=== PATIENT | male | born 1960 | race Two or more races ===

== ENCOUNTER 2017-06-14 06:07 | Emergency (ER) | payer OTHER ==
[~2017-06-14] VITALS: Ht 172.7 cm; Wt 79.4 kg
[~2017-06-14 06:07] MED LIST: 70/30 INSULIN SQ
--- NOTE | 2017-06-14 06:30 | NUR ---
Patient ambulated to ER with unsteady gait, reports to have fallen and has hurt his testicles. Patient has an abrasion under the chin, and reports to have history of diabetes and liver cirrhosis. Patient speaks Farsi.
--- NOTE | 2017-06-14 06:39 | NUR ---
Dr. Dickinson at bedside for MSE.
[2017-06-14 07:20] LABS: BASOPHILS % (AUTO) 1.2 % (0.0-2.0); EOSINOPHILS # (AUTO) 0.1 K/uL (0.0-0.7); EOSINOPHILS % (AUTO) 2.4 % (0.0-7.0); HEMATOCRIT 40.8 % (36.7-47.1); HEMOGLOBIN 13.8 g/dL (12.5-16.3); LYMPHOCYTES # (AUTO) 0.4 K/uL (20.0-40.0); LYMPHOCYTES % (AUTO) 15.6 % (20.5-51.5); MEAN CORPUSCULAR HEMOGLOBIN 29.4 uug (23.8-33.4); MEAN CORPUSCULAR HGB CONC 34 g/dL (32.5-36.3); MEAN CORPUSCULAR VOLUME 86.9 fL (73.0-96.2); MONOCYTES # (AUTO) 0.3 K/uL (2.0-10.0); MONOCYTES % (AUTO) 12.3 % (0.0-11.0); NEUTROPHILS # (AUTO) 1.8 K/uL (1.8-8.9); NEUTROPHILS % (AUTO) 68.5 % (38.5-71.5); PLATELET COUNT (AUTO) 78 K/uL (152-348); RED BLOOD CELL COUNT(AUTO) 4.69 MIL/uL (4.06-5.63); WHITE BLOOD COUNT (AUTO) 2.6 K/uL (3.6-10.2)
--- NOTE | 2017-06-14 07:23 | NUR ---
SBAR report passed to Amber DE PAZ.
[2017-06-14 07:32] LABS: POTASSIUM 4.2 mmol/L (3.5-5.1)
[2017-06-14 07:40] LABS: BILIRUBIN,DIRECT 0.2 mg/dL (0.0-0.2); BILIRUBIN,TOTAL 0.6 mg/dL (0.1-1.0)
--- NOTE | 2017-06-14 07:40 | NUR ---
the abrasion on the chin cleansed.
[2017-06-14 07:41] LABS: TOTAL PROTEIN, SERUM 6.4 g/dL (6.4-8.2)
[2017-06-14 07:57] VITALS: BP 141/89
--- NOTE | 2017-06-14 08:00 | NUR ---
[facility] nahid provided for pt.
--- NOTE | 2017-06-14 08:08 | NUR ---
pt with a drainage device on the right flank which is completely dressed. per pt this device was placed at [facility] to ashwin the "abdomnal fluid" per pt. Addendum: 06/14/17 at 0813 by SHEMAR the drainage device was placed 2 weeks ago.
--- NOTE | 2017-06-14 08:10 | NUR ---
both thighs mottled and blisters on both ble, edema on both feet,
--- NOTE | 2017-06-14 08:30 | NUR ---
pt requesting to be d/amarilys home with a px of the medications that he was on them for a long time and was able to control his diabetes and liver cirhosis. er at bedside discussing the issue with the pt. translation from farsi provided by me.
[2017-06-14 08:51] LABS: BAND % (MANUAL) 3 % (0-10); EOSINOPHILS % (MANUAL) 1 % (0-8); LYMPHOCYTES % (MANUAL) 12 % (20-40); MONOCYTES % (MANUAL) 19 % (2-10); NEUTROPHILS % (MANUAL) 62 % (42-75)
--- NOTE | 2017-06-14 09:08 | NUR ---
Patient discharged to home in stable conditon. Written and verbal after care instructions given. Patient verbalizes understanding of instructions.all the copy of er work ups provided for pt to follow up. pt walks in steady gait, deneis any pain, nausea or any other distreaa at this time.
== END 2017-06-14 09:12 | disposition other institution (70) ==
LOC: ER 06:21
DX: K74.60 Unspecified cirrhosis of liver (principal); E11.9 Type 2 diabetes mellitus without complications; F17.210 Nicotine dependence, cigarettes, uncomplicated; Z79.4 Long term (current) use of insulin
CPT/HCPCS: 36415; 70030-TC; 70450; 71045; 83605; 83690; 85025; 85730; 87040; 93005; A4663

== ENCOUNTER 2017-10-29 01:20 | Inpatient (IN) | payer OTHER ==
[~2017-10-29] VITALS: Ht 172.7 cm; Wt 80.7 kg
--- NOTE | 2017-10-29 01:25 | NUR ---
DR AINSLEY GUERRA MD AT BEDSIDE FOR MSE.
[2017-10-29] MEDS ORDERED: VANCOMYCIN IV 1,000 MG in IV DEXTROSE 5% 250 ML IV ONE (01:30)
[2017-10-29] MEDS ORDERED: CEFTRIAXONE 1 G in IV DEXTROSE 5% 50 ML IV ONE (01:30)
[2017-10-29] MEDS ORDERED: LIDOCAINE 1%-EPI 1:100,000 20 ML VIAL ONE (01:39)
[2017-10-29] MEDS ORDERED: ONDANSETRON IV *ER 4 MG/2 ML VIAL IV ONE (01:45)
[2017-10-29] MEDS ORDERED: HYDROMORPHONE 1 MG/1 ML DISP.SYRIN IV ONE (01:45)
[2017-10-29] MEDS ORDERED: HYDROMORPHONE 2 MG/1 ML DISP.SYRIN ONE (01:48)
[2017-10-29] MEDS ORDERED: CEFTRIAXONE 1 G VIAL ONE (01:48)
[2017-10-29] MEDS ORDERED: ONDANSETRON 4 MG/2 ML VIAL ONE (01:48)
[2017-10-29] MEDS ORDERED: VANCOMYCIN IV 200 ML ONE (01:49)
--- NOTE | 2017-10-29 01:57 | NUR ---
LAB AT BEDSIDE FOR BLOOD DRAW.
[2017-10-29 02:23] LABS: BASOPHILS % (AUTO) 0.7 % (0.0-2.0); EOSINOPHILS # (AUTO) 0.1 K/uL (0.0-0.7); EOSINOPHILS % (AUTO) 3.4 % (0.0-7.0); HEMATOCRIT 37.5 % (36.7-47.1); HEMOGLOBIN 12.6 g/dL (12.5-16.3); LYMPHOCYTES # (AUTO) 0.5 K/uL (20.0-40.0); MEAN CORPUSCULAR HEMOGLOBIN 29.5 uug (23.8-33.4); MEAN CORPUSCULAR HGB CONC 34 g/dL (32.5-36.3); MEAN CORPUSCULAR VOLUME 87.7 fL (73.0-96.2); MONOCYTES # (AUTO) 0.3 K/uL (2.0-10.0); MONOCYTES % (AUTO) 10.9 % (0.0-11.0); PLATELET COUNT (AUTO) 75 K/uL (152-348); RED BLOOD CELL COUNT(AUTO) 4.27 MIL/uL (4.06-5.63); WHITE BLOOD COUNT (AUTO) 2.9 K/uL (3.6-10.2)
[2017-10-29 02:29] LABS: BILIRUBIN,DIRECT 0.2 mg/dL (0.0-0.2); BILIRUBIN,TOTAL 0.7 mg/dL (0.2-1.0); CREATININE 0.9 mg/dL (0.6-1.3); TOTAL PROTEIN, SERUM 7.2 g/dL (6.4-8.2)
--- NOTE | 2017-10-29 02:46 | NUR ---
EPIC PAGED FOR PANEL. WAS TOLD ANDUBALDON WILL CALL BACK
[2017-10-29] MEDS ORDERED: MAGNESIUM HYDROXIDE 30 ML LIQUID UDC PO PRN (03:15)
[2017-10-29] MEDS ORDERED: HYDROCODONE/APAP 5-325MG TABLET PO PRN (03:15)
[2017-10-29] MEDS ORDERED: Z GUARD REMEDY PASTE 57 GM TUBE TOP PRN (03:15)
[2017-10-29] MEDS ORDERED: DEXTROSE 50% 50 ML DISP.SYRIN IV PRN (03:15)
[2017-10-29] MEDS ORDERED: ONDANSETRON 4 MG/2 ML VIAL IV PRN (03:15)
[2017-10-29] MEDS ORDERED: ACETAMINOPHEN 325 MG TABLET PO PRN (03:15)
[2017-10-29] MEDS ORDERED: INSULIN REGULAR, HUMAN 300 UNITS/3 ML VIAL SQ PRN (03:15)
[2017-10-29 03:27] LABS: ETHANOL < 3 MG/DL (0-0)
--- NOTE | 2017-10-29 03:40 | NUR ---
Pt. admitted to [facility], under care of Dr. LONG Belongs List completed
[2017-10-29 04:15] VITALS: BP 110/84
--- NOTE | 2017-10-29 04:15 | NUR ---
received pt from ER w/Dx of abdominal wall cellulitis,upon admission,Pt's A/A/O x4,able to understand some Hungarian.unit irientation's given to pt;he verbalized understanding and cooperative.at this time,already had admission orders from :carried it out.pt's on vancomycin 1gm IVPB from Er,still kept it noted. Per pt stated that"I'm very hungry,I didn't eat anything so long time";Sintia/limnologist's notified and she stated that she'll call (due to the order for paracentesis in AM today),and she left the message with exchange service by Sintia noted. at 04:45,pt called again and stated that"I'm very hungry.I don't need to remove any water from my tummy because ER doctor checked it but it's nothing inside";Sintia went to explained to pt at this time.
[2017-10-29 04:39] VITALS: BP 110/84
[2017-10-29] MEDS ORDERED: LIDOCAINE 1%-EPI 1:100,000 20 ML VIAL TP ONE (05:30)
--- NOTE | 2017-10-29 05:30 | NUR ---
CALLED BACK AND HE'S AWARE THAT PT REFUSED TO BE NPO FOR PARACENTESIS.PT'S SLEEPING AT THIS TIME NOTED.
--- NOTE | 2017-10-29 06:00 | NUR ---
PT WOKE UP AND STATED THAT' I DON'T WANT GET ANY TEST,I HAVE NO WATER IN MY TUMMY,GIVE ME SANDWICH,I WANT TO EAT";SANDWICH'S GIVEN TO PT AT THIS TIME,PT TOLERATED WELL NOTED.EDUCATED TO GET U/A ORDER AT THIS TIME,PT STATED THAT "I WILL GIVE IT TO YOU".NO DISTRESS NOTED IN THE SHIFT.
[2017-10-29] MEDS: BLOOD SUGAR DIAGNOSTIC 1 EACH STRIP VI SCH ×4 (06:47→20:26)
[2017-10-29 07:10] LABS: *BILIRUBIN,URIN NEGATIVE (NEGATIVE); *BLOOD, URINE Trace-intact (NEGATIVE); *CLARITY,URINE CLEAR (CLEAR); *COLOR,URINE YELLOW (YELLOW); *KETONES,URINE NEGATIVE (NEGATIVE); *PROTEIN,URINE 1+ (NEGATIVE); LEUKOCYTE ESTERASE ,URINE NEGATIVE (NEGATIVE); NITRITE, URINE NEGATIVE (NEGATIVE); UGLUCOSE NEGATIVE (NEGATIVE)
[2017-10-29 07:15] LABS: BACTERIA,URINE FEW /HPF (NONE SEEN); RBC,URINE 0-3 /HPF (0-3); SQUAMOUS EPITHELIAL CELL,UR FEW /HPF (NONE SEEN)
[2017-10-29] MEDS: INSULIN REGULAR, HUMAN 300 UNIT/3 ML VIAL SQ PRN ×2 (08:32→13:11)
[2017-10-29] MEDS: LACTULOSE 20 G/30 ML LIQUID UDC PO SCH ×2 (09:14→20:11)
[2017-10-29] MEDS: FUROSEMIDE 40 MG TABLET PO SCH (09:14)
[2017-10-29] MEDS: SPIRONOLACTONE 50 MG TABLET PO SCH (09:14)
[2017-10-29] MEDS: NICOTINE 21 MG/24HR PATCH TD SCH (09:14)
[2017-10-29 11:35] VITALS: BP 123/71
[2017-10-29] MEDS: VANCOMYCIN IV 1 G in PREMIXED 0 EACH IV SCH ×2 (11:39→21:19)
--- NOTE | 2017-10-29 14:42 | NUR ---
Clinical pharmacy note-Vancomycin dosing per pharmacy Subjective: To start Vancomycin dosing on this 57 year old patient for abdominal wall cellulitis . Objective: BUN 17 Scr 0.9 WBC 2.9 Temp 98.3 Ht 172.72cm Wt 80.739 kg Assessment/plan: Patient had Vancomycin 1 gram in ER today at 0130. Will continue Vancomycin 1 gram IV every 10 hrs(second dose today at 1130) and draw trough by 4th dose(ordered for tomorrow at 0700) for expected trough around 15.3. Will follow the level for further dosing.
[2017-10-29 15:47] VITALS: BP 129/74
--- NOTE | 2017-10-29 18:24 | NUR ---
Patient has been cooperative with care with the exception of smoking in the stairwell and going outside the building. Security warned the patient and patient was escorted back to room. Currently patient in room at bedside chair, no distress noted at this time.
[2017-10-29 19:33] VITALS: BP 144/75
--- NOTE | 2017-10-29 20:00 | NUR ---
RECEIVED PATIENT ASLEEP IN BED. EASILY AROUSABLE. PATIENT IS A/O X4. VERY PLEASANT WHEN APPROACHED. FARSI SPEAKING BUT ABLE TO MAKE SIMPLE NEEDS KNOWN. VS WNL. PATIENT DENIES PAIN OR DISCOMFORT. NO RESP. DISTRESS NOTED. IV HEPLOCK NOTED TO LEFT AC, INTACT. CALL LIGHT IN REACH, ALL NEEDS ATTENDED .WILL CONTINUE TO MONITOR.
--- NOTE | 2017-10-29 20:30 | NUR ---
IV HEPLOCK NOTED TO LEFT AC, OCCLUDED AND RED. REMOVED AND NEW HEPLOCK INSERTED TO LEFT FA #22 GAUGE, INTACT AND PATENT. WILL CONTINUE TO MONITOR AND ASSESS.
[2017-10-29] MEDS ORDERED: CEFTRIAXONE 1 G in IV DEXTROSE 5% 50 ML IV SCH (21:00)
[2017-10-30 04:28] VITALS: BP 148/74
[2017-10-30] MEDS: BLOOD SUGAR DIAGNOSTIC 1 EACH STRIP VI SCH ×2 (06:38→11:35)
--- NOTE | 2017-10-30 06:49 | NUR ---
PATIENT ASLEEP. SLEPT WELL. VSS. ALL NEEDS ATTENDED. WILL CONTINUE TO MONITOR AND ASSESS.
[2017-10-30 07:37] LABS: BASOPHILS % (AUTO) 0.9 % (0.0-2.0); EOSINOPHILS # (AUTO) 0.1 K/uL (0.0-0.7); EOSINOPHILS % (AUTO) 3.3 % (0.0-7.0); HEMATOCRIT 39.3 % (36.7-47.1); HEMOGLOBIN 13.2 g/dL (12.5-16.3); LYMPHOCYTES # (AUTO) 0.6 K/uL (20.0-40.0); LYMPHOCYTES % (AUTO) 20.5 % (20.5-51.5); MEAN CORPUSCULAR HEMOGLOBIN 29.8 uug (23.8-33.4); MEAN CORPUSCULAR HGB CONC 34 g/dL (32.5-36.3); MEAN CORPUSCULAR VOLUME 89.1 fL (73.0-96.2); MONOCYTES # (AUTO) 0.3 K/uL (2.0-10.0); MONOCYTES % (AUTO) 11.3 % (0.0-11.0); NEUTROPHILS # (AUTO) 1.9 K/uL (1.8-8.9); PLATELET COUNT (AUTO) 70 K/uL (152-348); RED BLOOD CELL COUNT(AUTO) 4.41 MIL/uL (4.06-5.63)
--- NOTE | 2017-10-30 07:45 | NUR ---
RECEIVED PATIENT AWAKE ALERT AND AWARE WITH SOME LANGUAGE DIFFICULTY BUT DOES UNDERSTAND AND ABLE TO MAKE NEEDS KNOWN HEPLOCK LEFT FOREARM REMAIN INTACT WITH NO S/S OF INFILTERATION ON SITE AMBULATORY IN THE HALLWAY MADE COMFORTABLE NO DISTRESS NOTED AT THIS TIME.
[2017-10-30 07:50] LABS: CREATININE 0.8 mg/dL (0.6-1.3); MAGNESIUM 1.7 mg/dL (1.8-2.4); PHOSPHOROUS 3.4 mg/dL (2.5-4.9)
[2017-10-30] MEDS: INSULIN REGULAR, HUMAN 300 UNIT/3 ML VIAL SQ PRN ×2 (07:50→11:37)
[2017-10-30 08:08] LABS: EOSINOPHILS % (MANUAL) 3 % (0-8); LYMPHOCYTES % (MANUAL) 20 % (20-40); MONOCYTES % (MANUAL) 11 % (2-10); NEUTROPHILS % (MANUAL) 66 % (42-75)
[2017-10-30] MEDS: SPIRONOLACTONE 50 MG TABLET PO SCH (08:11)
[2017-10-30] MEDS: FUROSEMIDE 40 MG TABLET PO SCH (08:11)
[2017-10-30] MEDS: LACTULOSE 20 G/30 ML LIQUID UDC PO SCH (08:11)
[2017-10-30] MEDS: NICOTINE 21 MG/24HR PATCH TD SCH (08:12)
[2017-10-30] MEDS: VANCOMYCIN IV 1 G in PREMIXED 0 EACH IV SCH (08:43)
--- NOTE | 2017-10-30 08:53 | NUR ---
PATIENT NOTED TO BE ABSENT IN HIS ROOM CALLED SECURITY AND WAS INFORMED THAT HE WAS DOWN STAIRS ASKED PATIENT TO COME BACK TO HIS ROOM AND HE DID PATIENT WAS INSTRUCTED THAT FOR HIS SAFETY HE WAS NOT ALLOWED TO GO DOWNSTAIRS ESPECIALLY WITHOUT NOTIFYING THE NURSE OF HIS WHERE ABOUT AND HE EXPRESSED UNDERSTANDING IV ATB VANCOMICIN STARTED ORDERED AT THIS TIME.
--- NOTE | 2017-10-30 09:11 | NUR ---
MAGNESSIUM LEVEL IS 1.7 DR REGAN NOTIFIED WITH NEW ORDERS AND NOTED.
[2017-10-30] MEDS ORDERED: MAGNESIUM OXIDE 400 MG TABLET PO ONE (09:15)
[2017-10-30 11:16] VITALS: BP_SYST 120; BP_SYST 20; BP_DIAS 74
--- NOTE | 2017-10-30 12:33 | NUR ---
Clinical pharmacy note-Vancomycin dosing per pharmacy Subjective: To continue Vancomycin dosing on this 57 year old patient for abdominal wall cellulitis . Objective: BUN 17 Scr 0.9 WBC 2.9 Temp 98.3 Ht 172.72cm Wt 80.739 kg Vancomycin trough 10.6 today at 0700 Assessment/plan: Will change Vancomycin to 1250 mg IV every 10 hrs(first dose today at 1700) and draw trough by 4th dose(not ordered yet) for expected trough around 14.7. Will follow the level for further dosing.
[2017-10-30 15:26] VITALS: BP 116/62
--- NOTE | 2017-10-30 15:55 | NUR ---
PATIENT CAME TO THE NURSES STATION ALL DRESSED UP AND STATED THAT HE HAS TO LEAVE NOW STATED THAT HE HAS AN EMERGENCY AND HIS DAUGHTER IS BEING ADMITTED TO ANOTHER HOSPITAL AND HE MUST LEAVE STATED WILL SIGN THE AGAINST MEDICAL ADVICE PAPER CALLED AND NOTIFIED DR REGAN AND PATIENT SIGNED THE AMA PAPER AND LEFT REFUSED TO WAIT FOR DISCHARGE PAPERWORK.HEPLOCK REMOVED AND PATIENT LEFT.
[2017-10-30] MEDS ORDERED: VANCOMYCIN IV 1,250 MG in IV DEXTROSE 5% 500 ML IV SCH (17:00)
== END 2017-10-30 15:55 | disposition left against medical advice (07) | DRG 383 ==
LOC: ER 01:23 → MED 03:00
PROVIDERS: ADMIT Family Medicine; ATTEND Internal Medicine
PROC: 0WJF3ZZ Inspection of Abdominal Wall, Percutaneous Approach (ICD-10-PCS; principal; 2017-10-29)
DX: L03.311 Cellulitis of abdominal wall (principal); K85.90 Acute pancreatitis without necrosis or infection, unspecified; R18.8 Other ascites; E11.65 Type 2 diabetes mellitus with hyperglycemia; K72.90 Hepatic failure, unspecified without coma; K74.60 Unspecified cirrhosis of liver; I10 Essential (primary) hypertension
CPT/HCPCS: 36415; 76705; 83690; 83735; 84100; 85025; 85730; 87040; 93005; A4663; G0480; J0696; J1170; J1815; J2405; J3370; J3490; J7050; J7060

== ENCOUNTER 2018-02-23 02:38 | Inpatient (IN) | END 2018-02-24 14:55 | disposition left against medical advice (07) | DRG 282 | DX: K85.20 Alcohol induced acute pancreatitis without necrosis or infection (principal); D69.6 Thrombocytopenia, unspecified; D70.9 Neutropenia, unspecified; K70.31 Alcoholic cirrhosis of liver with ascites; E11.65 Type 2 diabetes mellitus with hyperglycemia; F17.210 Nicotine dependence, cigarettes, uncomplicated; Z79.4 Long term (current) use of insulin; E87.1 Hypo-osmolality and hyponatremia; K80.20 Calculus of gallbladder without cholecystitis without obstruction; Z79.899 Other long term (current) drug therapy ==

== ENCOUNTER 2019-02-10 15:57 | Emergency (ER) | payer OTHER ==
[~2019-02-10] VITALS: Ht 175.3 cm; Wt 88.5 kg
[~2019-02-10 15:57] MED LIST changes: -70/30 INSULIN SQ; +FURO40TA5 PO; +INSU100I26 SQ; +INSU100V28; +LACT10SO PO; +METF-495 PO; +NPH,100V SQ; +PROP80CA51 PO; +SPIR100T5 PO
[2019-02-10] MEDS ORDERED: ACETAMINOPHEN ES 500 MG TABLET PO ONE (16:30)
--- NOTE | 2019-02-10 17:55 | NUR ---
Patient discharged to home in stable conditon and brisk steady gait. Written and verbal after care instructions given to patient with Farsi-speaker ER registration staff Elvira. Patient verbalizes understanding & compliance of instructions.
== END 2019-02-10 17:56 | disposition home or self-care (01) ==
LOC: ER 16:06
DX: S80.11XA Contusion of right lower leg, initial encounter (principal); E11.9 Type 2 diabetes mellitus without complications; F17.210 Nicotine dependence, cigarettes, uncomplicated; Z79.4 Long term (current) use of insulin; Z79.899 Other long term (current) drug therapy; W22.8XXA Striking against or struck by other objects, initial encounter; Y93.89 Activity, other specified; Y92.89 Other specified places as the place of occurrence of the external cause; Y99.8 Other external cause status
CPT/HCPCS: A4663

== ENCOUNTER 2020-11-18 17:30 | Emergency (ER) | payer OTHER ==
[~2020-11-18] VITALS: Ht 180.3 cm; Wt 84.4 kg
[~2020-11-18 17:30] MED LIST changes: -LACT10SO PO; +LACT10SO3 PO
[2020-11-18] MEDS ORDERED: PROP80CA51 PO (18:57)
[2020-11-18] MEDS ORDERED: ATOR10TA PO (18:57)
[2020-11-18] MEDS ORDERED: CLON0.1T PO (18:57)
[2020-11-18] MEDS ORDERED: SPIR100T5 PO (18:57)
[2020-11-18] MEDS ORDERED: DIPH25CA83 PO (18:57)
[2020-11-18] MEDS ORDERED: ENAL5TAB21 PO (18:57)
[2020-11-18] MEDS ORDERED: PRAZ1CAP5 PO (18:57)
[2020-11-18] MEDS ORDERED: GABA300C PO (18:57)
[2020-11-18] MEDS ORDERED: IBUP-1957 PO (19:03)
[2020-11-18] MEDS ORDERED: DIPH-1062 PO (19:03)
[2020-11-18] MEDS ORDERED: MAGN400C PO (19:03)
[2020-11-18] MEDS ORDERED: LOPE2CAP PO (19:03)
--- NOTE | 2020-11-18 19:06 | NUR ---
DR. SKINNER AT BEDSIDE, MSE IN PROGRESS.
[2020-11-18] MEDS ORDERED: HYDROMORPHONE 1 MG/1 ML DISP.SYRIN IM ONE (19:15)
[2020-11-18] MEDS ORDERED: ONDANSETRON HCL 4 MG TABLET PO ONE (19:15)
[2020-11-18] MEDS ORDERED: ONDANSETRON HCL 4 MG TABLET ONE (19:26)
[2020-11-18] MEDS ORDERED: HYDROMORPHONE 2 MG/1 ML DISP.SYRIN ONE (19:26)
--- NOTE | 2020-11-18 19:33 | NUR ---
LAB AT BEDSIDE.
--- NOTE | 2020-11-18 19:47 | NUR ---
Zeferino powell in [facility] - 11/18/20 at 2016 by ADITYA GAVE REPORT TO ELOISA. TRACY
[2020-11-18 19:50] LABS: HEMATOCRIT 40.9 % (36.7-47.1); MEAN CORPUSCULAR VOLUME 89.6 fL (73.0-96.2); PLATELET COUNT (AUTO) 82 K/uL (152-348)
[2020-11-18 20:01] LABS: BILIRUBIN,DIRECT 0.1 mg/dL (0.0-0.2); BILIRUBIN,TOTAL 0.8 mg/dL (0.2-1.0); CREATININE 1.2 mg/dL (0.6-1.3); POTASSIUM 4.7 mmol/L (3.5-5.1); TOTAL PROTEIN, SERUM 7.4 g/dL (6.4-8.2)
[2020-11-18 20:03] LABS: MAGNESIUM 1.8 mg/dL (1.8-2.4)
[2020-11-18] MEDS ORDERED: INSULIN REGULAR, HUMAN 300 UNIT/3 ML VIAL SQ ONE (20:15)
[2020-11-18] MEDS ORDERED: LACTULOSE 20 G/30 ML LIQUID UDC PO ONE (20:15)
[2020-11-18] MEDS ORDERED: LACTULOSE 20 G/30 ML LIQUID UDC ONE (20:46)
[2020-11-18] MEDS ORDERED: INSULIN REGULAR, HUMAN 300 UNIT/3 ML VIAL ONE (20:47)
[2020-11-18] MEDS ORDERED: LACT10SO3 PO (21:02)
[2020-11-18] MEDS ORDERED: OXYC10TA59 PO (21:02)
--- NOTE | 2020-11-18 21:43 | NUR ---
Patient discharged to home in stable condition. A/O x4, denies any pain/discomfort upon discharge. Written and verbal after care instructions given. Patient verbalizes understanding of instructions. Stressed follow up or return to ER for worsening s/s. Steady gait.
[2020-11-18 21:45] VITALS: BP 142/87
[2020-11-18 22:22] LABS: BAND % (MANUAL) 2 % (0-10); EOSINOPHILS % (MANUAL) 3 % (0-8); LYMPHOCYTES % (MANUAL) 21 % (20-40); MONOCYTES % (MANUAL) 4 % (2-10); NEUTROPHILS % (MANUAL) 70 % (42-75)
== END 2020-11-18 21:44 | disposition home or self-care (01) ==
LOC: ER 17:30
DX: K72.90 Hepatic failure, unspecified without coma (principal); K74.60 Unspecified cirrhosis of liver; Z79.4 Long term (current) use of insulin; Z79.899 Other long term (current) drug therapy; I45.10 Unspecified right bundle-branch block; I87.8 Other specified disorders of veins; E11.65 Type 2 diabetes mellitus with hyperglycemia; R60.0 Localized edema; F17.210 Nicotine dependence, cigarettes, uncomplicated; M25.50 Pain in unspecified joint; T50.B95A Adverse effect of other viral vaccines, initial encounter; Y92.89 Other specified places as the place of occurrence of the external cause
CPT/HCPCS: 36415; 80048; 80076; 82140; 83735; 85007; 85025; 93005; 96372 ×2; 99284; J1170; J1815; 70030-TC; A4663; Q0162

== ENCOUNTER 2020-11-19 07:15 | Emergency (ER) | payer OTHER ==
[~2020-11-19] VITALS: Ht 180.3 cm; Wt 83.9 kg
[~2020-11-19 07:15] MED LIST changes: +ATOR10TA PO; +CLON0.1T PO; +DIPH-1062 PO; +DIPH25CA83 PO; +ENAL5TAB21 PO; +GABA300C PO; +IBUP-1957 PO; +LOPE2CAP PO; +MAGN400C PO; +OXYC10TA59 PO; +PRAZ1CAP5 PO
--- NOTE | 2020-11-19 07:39 | NUR ---
HZ=[id number]
[2020-11-19] MEDS: INSULIN REGULAR, HUMAN 300 UNIT/3 ML VIAL IV ONE (08:24)
[2020-11-19] MEDS ORDERED: INSULIN REGULAR, HUMAN 300 UNIT/3 ML VIAL ONE (08:28)
[2020-11-19] MEDS: IV NORMAL SALINE 1000 ML BAG IV ONE (08:35)
--- NOTE | 2020-11-19 08:55 | NUR ---
Patient discharged to home in stable condition. Written and verbal after care instructions given. Patient verbalizes understanding of instructions. Stressed follow up or return to ER for worsening s/s.
[2020-11-19 08:57] VITALS: BP 131/77
== END 2020-11-19 08:57 | disposition home or self-care (01) ==
LOC: ER 07:15
DX: E11.9 Type 2 diabetes mellitus without complications (principal); F17.210 Nicotine dependence, cigarettes, uncomplicated; Z79.4 Long term (current) use of insulin; Z79.899 Other long term (current) drug therapy; R51.9 Headache, unspecified; R20.0 Anesthesia of skin; R94.31 Abnormal electrocardiogram [ECG] [EKG]
CPT/HCPCS: 93005; A4663; J1815; J7030